=== PATIENT | female | born 1950 | race Asian ===

== ENCOUNTER 2018-02-14 07:22 | Day surgery (SDC) | payer OTHER ==
[~2018-02-14] VITALS: Ht 157.5 cm; Wt 53.5 kg
[~2018-02-14 07:22] MED LIST: GLUT25PO4 PO; INSU100I28 SQ; METF-414 PO; NAPR220T66 PO; SIMV20TA6 PO
[2018-02-14] MEDS ORDERED: INDOCYANINE GREEN 25 MG VIAL IV ONE (07:32)
[2018-02-14] MEDS ORDERED: SKIN ADHESIVE 0.7 GM EA TOP ONE (07:32)
[2018-02-14] MEDS ORDERED: BUPIVACAINE HCL 0.5% (5MG/ML) 50ML ONE (07:32)
[2018-02-14] MEDS ORDERED: BACITRACIN ZINC 15GM TUBE TOP ONE (07:33)
[2018-02-14] MEDS ORDERED: ASPI-1159 PO (08:48)
[2018-02-14] MEDS ORDERED: ROCURONIUM BROMIDE 10MG/ML VIAL 5ML IV ONE (08:59)
[2018-02-14] MEDS ORDERED: PROPOFOL 200MG/20ML VIAL IV ONE (08:59)
[2018-02-14] MEDS ORDERED: FENTANYL CITRATE/PF 50MCG/ML 2ML VIAL ONE (09:00)
[2018-02-14] MEDS ORDERED: CEFAZOLIN SODIUM 1000MG/VIAL ONE (09:14)
[2018-02-14] MEDS ORDERED: GLYCOPYRROLATE 0.2 MG/ML 2ML VIAL ONE ×3 (09:23→10:13)
[2018-02-14] MEDS ORDERED: ONDANSETRON HCL 4MG/2ML INJ ONE (09:41)
[2018-02-14] MEDS ORDERED: NEOSTIGMINE METHYLSULFATE 1MG/ML 10 ML VIAL ONE (09:42)
[2018-02-14] MEDS ORDERED: EPHEDRINE SULFATE 50MG/ML VIAL ONE (09:43)
[2018-02-14] MEDS: HYDROMORPHONE HCL/PF 2MG/ML CPJ IV PRN ×4 (10:29→11:27)
[2018-02-14] MEDS ORDERED: FENTANYL CITRATE/PF 50MCG/ML 2ML VIAL IV PRN (10:30)
[2018-02-14 11:27] VITALS: BP 111/57
== END 2018-02-14 13:30 | disposition home or self-care (01) ==
LOC: OR 07:22
PROVIDERS: ATTEND Surgery
DX: K80.10 Calculus of gallbladder with chronic cholecystitis without obstruction (principal); Z79.899 Other long term (current) drug therapy; Z79.4 Long term (current) use of insulin; Z79.82 Long term (current) use of aspirin; E11.9 Type 2 diabetes mellitus without complications; I10 Essential (primary) hypertension; E78.00 Pure hypercholesterolemia, unspecified; Z90.710 Acquired absence of both cervix and uterus; Z98.890 Other specified postprocedural states
CPT/HCPCS: 47562; 82962; 88304; J0690; J1170; J2405; J2710; J3010; J3490; Q9957; S2900; J2704; J7030